=== PATIENT | female | born 1985 | race African-American/Black ===

== ENCOUNTER 2021-02-11 10:19 | Emergency (ER) | payer MEDICAID ==
[~2021-02-11] VITALS: Ht 160 cm; Wt 97.0 kg
[~2021-02-11 10:19] MED LIST: FERR-63 PO; IBUP-2030 PO
[2021-02-11] MEDS ORDERED: NAPR220T66 PO (10:23)
[2021-02-11] MEDS ORDERED: KETOROLAC 60MG/2ML VIAL IM ONE (12:45)
[2021-02-11] MEDS ORDERED: NAPR-681 MT (12:46)
[2021-02-11 13:29] VITALS: BP 118/60
== END 2021-02-11 13:30 | disposition home or self-care (01) ==
LOC: ER 10:19
DX: S16.1XXA Strain of muscle, fascia and tendon at neck level, initial encounter (principal); M25.512 Pain in left shoulder; Z98.890 Other specified postprocedural states; Z90.49 Acquired absence of other specified parts of digestive tract; V49.9XXA Car occupant (driver) (passenger) injured in unspecified traffic accident, initial encounter; Y93.89 Activity, other specified; Y92.89 Other specified places as the place of occurrence of the external cause; Y99.8 Other external cause status
CPT/HCPCS: 81025; 96372; 99283; J1885